=== PATIENT | female | born 1955 | race Two or more races ===

== ENCOUNTER 2016-10-02 13:11 | Observation (INO) | payer SELFPAY ==
[~2016-10-02] VITALS: Ht 149.9 cm; Wt 61.2 kg
[~2016-10-02 13:11] MED LIST: ALBU8.5H6 IH; AZIT1PAC PO; CELE-20 PO; DOXY100T PO; FLUT1DIS5 IH; FLUT9.9S NS; IBUP100O24 PO; IPRA4AER IH; MONT10TA6 PO; OSEL75CA PO; PRED-220 PO; PRED20TA PO; RANI150C PO; SERT25TA PO; SINGU; SPIR25TA PO; predni; singulair
[2016-10-02] MEDS ORDERED: IPRATRPIUM/ALBUTEROL 0.5/2.5MG 3 ML NEBU. NEB ONE (13:30)
[2016-10-02] MEDS ORDERED: methylPREDNISolone SOD SUCC PF 125 MG/2 ML VIAL. IV ONE (13:30)
--- NOTE | 2016-10-02 13:30 | PHYS DOC ---
Past Medical History Past Medical History: CHF, COPD, Diabetes-Type I, Stroke Past Surgical History: Appendectomy, Cholecystectomy, Hysterectomy, Other Additional Past Surgical Histo: BLADDER Alcohol Use: None Drug Use: None Adult General Chief Complaint Chief Complaint: SHORTNESS OF BREATH HPI HPI Patient is a 61 year old Turkmen female who presents with shortness of breath. She states it started around 2 days ago and she's been having a yellow productive cough. She denies any fevers chills. She states she's been having intermittent chest pain that today has become constant she describes as a pressure sensation in her anterior chest. She denies any nausea or diaphoresis. History of heart attacks in the past. She had 2 breathing treatments in route and is feeling better now. She states she hasn't inhaler and a nebulizer at home that she's been using. Review of Systems Review of Systems Constitutional: Denies fever or chills [] Eyes: Denies change in visual acuity, redness, or eye pain [] HENT: Denies nasal congestion or sore throat [] Respiratory: Denies cough or shortness of breath [] Cardiovascular: No additional information not addressed in HPI [] GI: Denies abdominal pain, nausea, vomiting, bloody stools or diarrhea [] : Denies dysuria or hematuria [] Musculoskeletal: Denies back pain or joint pain [] Integument: Denies rash or skin lesions [] Neurologic: Denies headache, focal weakness or sensory changes [] Endocrine: Denies polyuria or polydipsia [] Current Medications Current Medications Current Medications Medications (Trade) Dose Ordered Sig/Zafar Start Time Stop Time Status Last Admin Dose Admin Albuterol/ Ipratropium (Duoneb) 3 ml 1X ONCE 10/02/16 13:30 10/02/16 13:31 DC 10/02/16 14:23 3 ML Aspirin (Ana Paula Aspirin) 325 mg 1X ONCE 10/02/16 15:45 10/02/16 15:46 DC Azithromycin (Zithromax) 500 mg 1X ONCE 10/02/16 15:45 10/02/16 15:46 DC Methylprednisolone Sodium Succinate (SOLU-Medrol 125MG VIAL) 125 mg 1X ONCE 10/02/16 13:30 10/02/16 13:31 DC 10/02/16 14:22 125 MG Ondansetron HCl (Zofran) 4 mg PRN Q8HRS PRN 10/02/16 15:45 10/03/16 15:44 Allergies Allergies Allergies Coded Allergies Type Severity Reaction Last Updated Verified No Known Drug Allergies 06/13/13 No Physical Exam Physical Exam Constitutional: Well developed, well nourished, no acute distress, non-toxic appearance. [] HENT: Normocephalic, atraumatic, bilateral external ears normal, oropharynx moist, no oral exudates, nose normal. [] Eyes: PERRLA, EOMI, conjunctiva normal, no discharge. [] Neck: Normal range of motion, no tenderness, supple, no stridor. [] Cardiovascular:Heart rate regular rhythm, no murmur [] Lungs & Thorax: Bilateral breath sounds clear to auscultation [] Abdomen: Bowel sounds normal, soft, no tenderness, no masses, no pulsatile masses. [] Skin: Warm, dry, no erythema, no rash. [] Back: No tenderness, no CVA tenderness. [] Extremities: No tenderness, no cyanosis, no clubbing, ROM intact, no edema. [] Neurologic: Alert and oriented X 3, normal motor function, normal sensory function, no focal deficits noted. [] Psychologic: Affect normal, judgement normal, mood normal. [] Current Patient Data Vital Signs Vital Signs Date Time Temp Pulse Resp B/P (MAP) Pulse Ox O2 Delivery O2 Flow Rate FiO2 10/02/16 15:00 72 16 112/59 (76) 96 Room Air 10/02/16 13:12 98.3 98.3 Lab Values Laboratory Tests Test 10/02/16 13:15 10/02/16 13:29 Urine Collection Type Unknown Urine Color Yellow Urine Clarity Clear Urine pH 7.0 Urine Specific [place] 1.020 Urine Protein Negative mg/dL (NEG-TRACE) Urine Glucose (UA) Negative mg/dL (NEG) Urine Ketones (Stick) Negative mg/dL (NEG) Urine Blood Negative (NEG) Urine Nitrite Negative (NEG) Urine Bilirubin Negative (NEG) Urine Urobilinogen Dipstick 0.2 mg/dL (0.2 mg/dL) Urine Leukocyte Esterase Negative (NEG) Urine RBC 0 /HPF (0-2) Urine WBC 0 /HPF (0-4) Urine Squamous Epithelial Cells Few /LPF Urine Bacteria 0 /HPF (0-FEW) Urine Mucus Mod /LPF White Blood Count 10.5 x10^3/uL (4.0-11.0) Red Blood Count 3.77 x10^6/uL (3.50-5.40) Hemoglobin 11.1 g/dL (12.0-15.5) L Hematocrit 32.9 % (36.0-47.0) L Mean Corpuscular Volume 87 fL (79-100) Mean Corpuscular Hemoglobin 29 pg (25-35) Mean Corpuscular Hemoglobin Concent 34 g/dL (31-37) Red Cell Distribution Width 13.6 % (11.5-14.5) Platelet Count 342 x10^3/uL (140-400) Neutrophils (%) (Auto) 76 % (31-73) H Lymphocytes (%) (Auto) 16 % (24-48) L Monocytes (%) (Auto) 6 % (0-9) Eosinophils (%) (Auto) 2 % (0-3) Basophils (%) (Auto) 0 % (0-3) Neutrophils # (Auto) 7.9 x10^3uL (1.8-7.7) H Lymphocytes # (Auto) 1.7 x10^3/uL (1.0-4.8) Monocytes # (Auto) 0.6 x10^3/uL (0.0-1.1) Eosinophils # (Auto) 0.2 x10^3/uL (0.0-0.7) Basophils # (Auto) 0.0 x10^3/uL (0.0-0.2) Sodium Level 146 mmol/L (136-145) H Potassium Level 3.5 mmol/L (3.5-5.1) Chloride Level 113 mmol/L (98-107) H Carbon Dioxide Level 21 mmol/L (21-32) Anion Gap 12 (6-14) Blood Urea Nitrogen 24 mg/dL (7-20) H Creatinine 0.9 mg/dL (0.6-1.0) Estimated GFR (Cockcroft-Gault) 64.1 Glucose Level 82 mg/dL (70-99) Calcium Level 8.2 mg/dL (8.5-10.1) L Total Bilirubin 0.2 mg/dL (0.2-1.0) Direct Bilirubin 0.1 mg/dL (0.0-0.2) Aspartate Amino Transferase (AST) 16 U/L (15-37) Alanine Aminotransferase (ALT) 17 U/L (14-59) Alkaline Phosphatase 113 U/L (46-116) Creatine Kinase 87 U/L (26-192) Creatine Kinase MB (Mass) 1.8 ng/mL (0.0-3.6) Creatine Kinase MB Relative Index 2.1 % (0-4) Troponin I Quantitative < 0.017 ng/mL (0.000-0.055) VH-Eos-T-Type Natriuretic Peptide 313 pg/mL (0-124) H Total Protein 7.1 g/dL (6.4-8.2) Albumin 3.5 g/dL (3.4-5.0) Laboratory Tests 10/02/16 13:29 Laboratory Tests 10/02/16 13:29 EKG EKG EKG shows sinus rhythm with rate [address] elevations or T-wave inversions, normal axis, QTC 393 ms, as interpreted by me. Radiology/Procedures Radiology/Procedures [facility] [address] [place] [address] IMAGING REPORT Signed PATIENT: BRE SILVA ACCOUNT: [id number] : 1955 LOCATION: ER AGE: 61 SEX: F EXAM STATUS: REG ER ORD. PHYSICIAN: TANG VALDEZ MD REASON: soa PROCEDURE: CHEST PA & LATERAL 2 views of the Chest 10/02/2016 3:27 PM Indication: Shortness of breath Comparison: Chest radiograph August 03, 2015 Findings: There is no pneumothorax or pleural effusion. No new focal infiltrate is seen. No definitive lucency of the right upper lung is noted, similar to prior exams likely reflecting emphysematous changes. Interstitial coarsening is similar. Heart size is normal. No acute bony changes are appreciated. Surgical changes in the epigastric noted. Impression: 1. Stable radiographic appearance of the chest without evidence of acute cardiopulmonary process. 2. Similar emphysematous changes DICTATED and SIGNED BY: ROSE MARIE HILL MD DATE: 10/02/16 0524 CC: TANG VALDEZ MD; UNKNOWN PCP NAME ~ Impressions: Chest pain COPD exacerbation Course & Med Decision Making Course & Med Decision Making Pertinent Labs and Imaging studies reviewed. (See chart for details) EKG, labs are nonacute. Patient received Solu-Medrol, azithromycin and DuoNeb nebs. Her shortness of breath and chest pressure has improved. She's being admitted to the hospitalist with cardiology consultation. Interim orders have been written. Dragon Disclaimer Dragon Disclaimer This electronic medical record was generated, in whole or in part, using a voice recognition dictation system. Departure Departure Referrals: ASHLIE GOEL MD (PCP) TANG VALDEZ MD Oct 02, 2016 13:30
[2016-10-02 13:44] LABS: BILIRUBIN,URINE NEGATIVE (NEG); GLUCOSE,URINE NEGATIVE (NEG); NITRITE,URINE NEGATIVE (NEG); PROTEIN,URINE NEGATIVE (NEG-TRACE); UROBILINOGEN,URINE 0.2 mg/dL (0.2 mg/dL)
--- NOTE | 2016-10-02 13:47 | RAD ---
2 views of the Chest 10/02/2016 3:27 PM Indication: Shortness of breath Comparison: Chest radiograph August 03, 2015 Findings: There is no pneumothorax or pleural effusion. No new focal infiltrate is seen. No definitive lucency of the right upper lung is noted, similar to prior exams likely reflecting emphysematous changes. Interstitial coarsening is similar. Heart size is normal. No acute bony changes are appreciated. Surgical changes in the epigastric noted. Impression: 1. Stable radiographic appearance of the chest without evidence of acute cardiopulmonary process. 2. Similar emphysematous changes
[2016-10-02 13:49] LABS: BASO % 0 % (0-3); EOS % 2 % (0-3); HEMATOCRIT 32.9 % (36.0-47.0); HEMOGLOBIN 11.1 g/dL (12.0-15.5); LYMPH # 1.7 x10^3/uL (1.0-4.8); LYMPH % 16 % (24-48); MEAN CORPUSCULAR HEMOGLOBIN 29 pg (25-35); MEAN CORPUSCULAR HGB CONC 34 g/dL (31-37); MEAN CORPUSCULAR VOLUME 87 fL (79-100); MONO % 6 % (0-9); NEUT % 76 % (31-73); PLATELET COUNT 342 x10^3/uL (140-400); RED BLOOD COUNT 3.77 x10^6/uL (3.50-5.40); RED CELL DISTRIBUTION WIDTH 13.6 % (11.5-14.5); WHITE BLOOD COUNT 10.5 x10^3/uL (4.0-11.0)
[2016-10-02 13:50] LABS: CALCIUM 8.2 mg/dL (8.5-10.1); CREATININE 0.9 mg/dL (0.6-1.0); GFR 64.1; POTASSIUM 3.5 mmol/L (3.5-5.1)
[2016-10-02 13:55] LABS: BACTERIA,URINE 0 /HPF (0-FEW); RBC,URINE 0 /HPF (0-2); SQUAMOUS EPITHELIAL CELL,UR FEW /LPF; WBC,URINE 0 /HPF (0-4)
[2016-10-02 13:57] LABS: ALBUMIN 3.5 g/dL (3.4-5.0); DIRECT BILIRUBIN 0.1 mg/dL (0.0-0.2); TOTAL BILIRUBIN 0.2 mg/dL (0.2-1.0); TOTAL PROTEIN 7.1 g/dL (6.4-8.2)
[2016-10-02 14:06] LABS: CKMB MASS 1.8 ng/mL (0.0-3.6)
--- NOTE | 2016-10-02 14:15 | EKG ---
[facility] [address] [place] [address] Test Date: 2016-10-02 Test Time: 14:11:49 Pat Name: BRE SILVA Department: Room: Gender: F Applications Tester: : 1955 Requested By: TANG VALDEZ Order Number: [id number] Reading MD: Candy Finney Measurements Intervals [place] Rate: 78 P: 40 WI: 146 QRS: 44 QRSD: 82 T: 34 QT: 342 QTc: 393 Interpretive Statements SINUS RHYTHM NORMAL ECG Electronically Signed On 10-06-2016 15:22:23 CDT by Candy Finney
[2016-10-02] MEDS ORDERED: AZITHROMYCIN 250 MG TABLET. PO ONE (15:45)
[2016-10-02] MEDS ORDERED: ONDANSETRON PF 4 MG/2 ML VIAL. IV PRN ×2 (15:45→16:45)
[2016-10-02] MEDS ORDERED: ASPIRIN 325 MG TABLET PO ONE (15:45)
--- NOTE | 2016-10-02 15:56 | PDOC2 ---
CARDIAC CONSULT DATE OF CONSULT Date of Consult DATE: 10/02/16 TIME: 15:52 REASON FOR CONSULT Reason for Consult: chest pain REFERRING PHYSICIAN Referring Physician: Cynthia SOURCE Source: Chart review, Patient HISTORY OF PRESENT ILLNESS HISTORY OF PRESENT ILLNESS This is a 61 yo female admitted for complains of SOA and chest pain. Reports that her SOA and wheezing started about 3 days ago. She has been coughing and productive with yellow sputum. Denies any fever or chills. Verbalized that she has quit smoking and has not ran out of her COPD inhalers and has been taking them regularly. She does have DM2 per review and told that she has been treating this with diet. Denies any CAD, VTE, recent falls, syncope or any recent injury. She does have GERD which she does not take medications for. She takes ASA and her inhalers and thats all the medications she takes. Her midsternal tightness started this morning and lasted about 2 hours but she also was having coughing spells. This is reproducible with palpation and it is nonradiating. PAST MEDICAL HISTORY Past Medical History PAST MEDICAL HISTORY: CHF, COPD, diabetes, and stroke. PAST SURGICAL HISTORY: Appendectomy, cholecystectomy, and hysterectomy. Pulmonary: COPD Endocrine: Diabetes (22) PAST SURGICAL HISTORY Past Surgical History: Appendectomy, Cholecystectomy, Tubal Ligation FAMILY HISTORY Family History noncontributory SOCIAL HISTORY Smoke: No (quit 6 yrs ago) ALCOHOL: none Drugs: None Lives: with Family CURRENT MEDICATIONS CURRENT MEDICATIONS Current Medications Medications (Trade) Dose Ordered Sig/Zafar Route PRN Reason Start Time Stop Time Status Last Admin Dose Admin Albuterol/ Ipratropium (Duoneb) 3 ml 1X ONCE NEB 10/02/16 13:30 10/02/16 13:31 DC 10/02/16 14:23 Methylprednisolone Sodium Succinate (SOLU-Medrol 125MG VIAL) 125 mg 1X ONCE IV 10/02/16 13:30 10/02/16 13:31 DC 10/02/16 14:22 ALLERGIES ALLERGIES: Coded Allergies: No Known Drug Allergies (Unverified , 06/13/13) ROS Review of System 14 point ROS evaluated with pertinent positives noted per HPI PHYSICAL EXAM General: Alert, Oriented X3, Cooperative, No acute distress HEENT: Atraumatic, Mucous membr. moist/pink Lungs: Clear to auscultation, Normal air movement Heart: Regular rate (SR), Normal S1, Normal S2 Abdomen: Soft, No tenderness Extremities: No cyanosis, No edema Skin: No breakdown, No significant lesion Neuro: Sensation intact Psych/Mental Status: Mental status NL, Mood NL MUSCULOSKELETAL: Osteoarthritic changes both hands VITALS VITALS Vital Signs Date Time Temp Pulse Resp B/P (MAP) Pulse Ox O2 Delivery O2 Flow Rate FiO2 10/02/16 15:00 72 16 112/59 (76) 96 Room Air 10/02/16 13:12 98.3 98.3 LABS Lab: Laboratory Tests Test 10/02/16 13:15 10/02/16 13:29 Urine Collection Type Unknown Urine Color Yellow Urine Clarity Clear Urine pH 7.0 Urine Specific [place] 1.020 Urine Protein Negative mg/dL (NEG-TRACE) Urine Glucose (UA) Negative mg/dL (NEG) Urine Ketones (Stick) Negative mg/dL (NEG) Urine Blood Negative (NEG) Urine Nitrite Negative (NEG) Urine Bilirubin Negative (NEG) Urine Urobilinogen Dipstick 0.2 mg/dL (0.2 mg/dL) Urine Leukocyte Esterase Negative (NEG) Urine RBC 0 /HPF (0-2) Urine WBC 0 /HPF (0-4) Urine Squamous Epithelial Cells Few /LPF Urine Bacteria 0 /HPF (0-FEW) Urine Mucus Mod /LPF White Blood Count 10.5 x10^3/uL (4.0-11.0) Red Blood Count 3.77 x10^6/uL (3.50-5.40) Hemoglobin 11.1 g/dL (12.0-15.5) Hematocrit 32.9 % (36.0-47.0) Mean Corpuscular Volume 87 fL (79-100) Mean Corpuscular Hemoglobin 29 pg (25-35) Mean Corpuscular Hemoglobin Concent 34 g/dL (31-37) Red Cell Distribution Width 13.6 % (11.5-14.5) Platelet Count 342 x10^3/uL (140-400) Neutrophils (%) (Auto) 76 % (31-73) Lymphocytes (%) (Auto) 16 % (24-48) Monocytes (%) (Auto) 6 % (0-9) Eosinophils (%) (Auto) 2 % (0-3) Basophils (%) (Auto) 0 % (0-3) Neutrophils # (Auto) 7.9 x10^3uL (1.8-7.7) Lymphocytes # (Auto) 1.7 x10^3/uL (1.0-4.8) Monocytes # (Auto) 0.6 x10^3/uL (0.0-1.1) Eosinophils # (Auto) 0.2 x10^3/uL (0.0-0.7) Basophils # (Auto) 0.0 x10^3/uL (0.0-0.2) Sodium Level 146 mmol/L (136-145) Potassium Level 3.5 mmol/L (3.5-5.1) Chloride Level 113 mmol/L (98-107) Carbon Dioxide Level 21 mmol/L (21-32) Anion Gap 12 (6-14) Blood Urea Nitrogen 24 mg/dL (7-20) Creatinine 0.9 mg/dL (0.6-1.0) Estimated GFR (Cockcroft-Gault) 64.1 Glucose Level 82 mg/dL (70-99) Calcium Level 8.2 mg/dL (8.5-10.1) Total Bilirubin 0.2 mg/dL (0.2-1.0) Direct Bilirubin 0.1 mg/dL (0.0-0.2) Aspartate Amino Transf (AST/SGOT) 16 U/L (15-37) Alanine Aminotransferase (ALT/SGPT) 17 U/L (14-59) Alkaline Phosphatase 113 U/L (46-116) Creatine Kinase 87 U/L (26-192) Creatine Kinase MB (Mass) 1.8 ng/mL (0.0-3.6) Creatine Kinase MB Relative Index 2.1 % (0-4) Troponin I Quantitative < 0.017 ng/mL (0.000-0.055) SU-Hrt-D-Type Natriuretic Peptide 313 pg/mL (0-124) Total Protein 7.1 g/dL (6.4-8.2) Albumin 3.5 g/dL (3.4-5.0) ASSESSMENT/PLAN ASSESSMENT/PLAN 1. Atypical CP: doubt ACS. suspect bronchospasm/MSK from intractable coughing 2. AECOPD 3. DM2: diet controlled Recommendations 1. Trend troponin. Repeat EKG in AM. If no changes then no further w/u at this time 2. Lipid panel. Problems: ELLIS REECE SOCIAL WORK PROGRAM COORDINATOR Oct 02, 2016 15:56
[2016-10-02 16:00] VITALS: BP 119/60
--- NOTE | 2016-10-02 16:31 | PDOC1 ---
History and Physical Date of Admission Date of Admission 10/02/16 Identification/Chief Complaint Chief Complaint sob Problems: Source Source: Chart review, Patient History of Present Illness History of Present Illness HPI Patient is a 61 year old Irish female who presents with shortness of breath for 3 days. Pt was here in 07/2015 for sob with copd exacerbation. Pt said she started to cough with some yellow sputum 3 days ago, then sob, not exertional, no home o2. She also has some chest pain when she feels sob, pressure like, now 04/02, no N/V, diaphoresis or palpitation. She said had CAD with stents before, CHF, copd, BUT no pulm doc. Admited using some inhaler 4 times a day plus albuterol prn. pt got solumedrol duoneb in ER, now feels better, looks very calm to me. Past Medical History Cardiovascular: CHF Pulmonary: COPD GI: No pertinent hx Endocrine: Diabetes (22) Family History Family History: Hypertension Social History Smoke: No ALCOHOL: none Drugs: None Current Medications Current Medications Current Medications Medications (Trade) Dose Ordered Sig/Zafar Start Time Stop Time Status Last Admin Dose Admin Albuterol/ Ipratropium (Duoneb) 3 ml 1X ONCE 10/02/16 13:30 10/02/16 13:31 DC 10/02/16 14:23 3 ML Aspirin (Ana Paula Aspirin) 325 mg 1X ONCE 10/02/16 15:45 10/02/16 15:46 DC Azithromycin (Zithromax) 500 mg 1X ONCE 10/02/16 15:45 10/02/16 15:46 DC Methylprednisolone Sodium Succinate (SOLU-Medrol 125MG VIAL) 125 mg 1X ONCE 10/02/16 13:30 10/02/16 13:31 DC 10/02/16 14:22 125 MG Ondansetron HCl (Zofran) 4 mg PRN Q8HRS PRN 10/02/16 15:45 10/03/16 15:44 Allergies Allergies Allergies Coded Allergies Type Severity Reaction Last Updated Verified No Known Drug Allergies 06/13/13 No ROS Review of System CONSTITUTIONAL: No fever or chills EYES: No recent changes SKIN: No rash or itching CARDIOVASCULAR: No chest pain, syncope, palpitations, or edema RESPIRATORY: No SOB or cough GASTROINTESTINAL: No nausea, vomiting or abdominal pain NEUROLOGICAL: No headaches or weakness ENDOCRINE: No cold or heat intolerance GENITOURINARY: No urgency or frequency of urination MUSCULOSKELETAL: No back pain or joint pain LYMPHATICS: No enlarged lymph nodes PSYCHIATRIC: No anxiety or depression Physical Exam Physical Exam GEN.: No apparent distress. Alert and oriented. HEENT: Head is normocephalic, atraumatic NECK: Supple. LUNGS: right lower lob mild crackles, no wheezing HEART: RRR, S1, S2 present. Peripheral pulses intact ABDOMEN: Soft, nontender. Positive bowel sounds. EXTREMITIES: Without any cyanosis. bl leg trace edema NEUROLOGIC: Normal speech, normal tone PSYCHIATRIC: Normal affect, normal mood. SKIN: No ulcerations Vitals Vitals Vital Signs Date Time Temp Pulse Resp B/P (MAP) Pulse Ox O2 Delivery O2 Flow Rate FiO2 10/02/16 16:00 68 16 119/60 (79) 99 Room Air 10/02/16 13:12 98.3 98.3 Labs Labs Laboratory Tests Test 10/02/16 13:15 10/02/16 13:29 Urine Collection Type Unknown Urine Color Yellow Urine Clarity Clear Urine pH 7.0 Urine Specific [place] 1.020 Urine Protein Negative mg/dL (NEG-TRACE) Urine Glucose (UA) Negative mg/dL (NEG) Urine Ketones (Stick) Negative mg/dL (NEG) Urine Blood Negative (NEG) Urine Nitrite Negative (NEG) Urine Bilirubin Negative (NEG) Urine Urobilinogen Dipstick 0.2 mg/dL (0.2 mg/dL) Urine Leukocyte Esterase Negative (NEG) Urine RBC 0 /HPF (0-2) Urine WBC 0 /HPF (0-4) Urine Squamous Epithelial Cells Few /LPF Urine Bacteria 0 /HPF (0-FEW) Urine Mucus Mod /LPF White Blood Count 10.5 x10^3/uL (4.0-11.0) Red Blood Count 3.77 x10^6/uL (3.50-5.40) Hemoglobin 11.1 g/dL (12.0-15.5) Hematocrit 32.9 % (36.0-47.0) Mean Corpuscular Volume 87 fL (79-100) Mean Corpuscular Hemoglobin 29 pg (25-35) Mean Corpuscular Hemoglobin Concent 34 g/dL (31-37) Red Cell Distribution Width 13.6 % (11.5-14.5) Platelet Count 342 x10^3/uL (140-400) Neutrophils (%) (Auto) 76 % (31-73) Lymphocytes (%) (Auto) 16 % (24-48) Monocytes (%) (Auto) 6 % (0-9) Eosinophils (%) (Auto) 2 % (0-3) Basophils (%) (Auto) 0 % (0-3) Neutrophils # (Auto) 7.9 x10^3uL (1.8-7.7) Lymphocytes # (Auto) 1.7 x10^3/uL (1.0-4.8) Monocytes # (Auto) 0.6 x10^3/uL (0.0-1.1) Eosinophils # (Auto) 0.2 x10^3/uL (0.0-0.7) Basophils # (Auto) 0.0 x10^3/uL (0.0-0.2) Sodium Level 146 mmol/L (136-145) Potassium Level 3.5 mmol/L (3.5-5.1) Chloride Level 113 mmol/L (98-107) Carbon Dioxide Level 21 mmol/L (21-32) Anion Gap 12 (6-14) Blood Urea Nitrogen 24 mg/dL (7-20) Creatinine 0.9 mg/dL (0.6-1.0) Estimated GFR (Cockcroft-Gault) 64.1 Glucose Level 82 mg/dL (70-99) Calcium Level 8.2 mg/dL (8.5-10.1) Total Bilirubin 0.2 mg/dL (0.2-1.0) Direct Bilirubin 0.1 mg/dL (0.0-0.2) Aspartate Amino Transf (AST/SGOT) 16 U/L (15-37) Alanine Aminotransferase (ALT/SGPT) 17 U/L (14-59) Alkaline Phosphatase 113 U/L (46-116) Creatine Kinase 87 U/L (26-192) Creatine Kinase MB (Mass) 1.8 ng/mL (0.0-3.6) Creatine Kinase MB Relative Index 2.1 % (0-4) Troponin I Quantitative < 0.017 ng/mL (0.000-0.055) KP-Yur-N-Type Natriuretic Peptide 313 pg/mL (0-124) Total Protein 7.1 g/dL (6.4-8.2) Albumin 3.5 g/dL (3.4-5.0) Laboratory Tests Test 10/02/16 13:15 10/02/16 13:29 Urine Collection Type Unknown Urine Color Yellow Urine Clarity Clear Urine pH 7.0 Urine Specific [place] 1.020 Urine Protein Negative mg/dL (NEG-TRACE) Urine Glucose (UA) Negative mg/dL (NEG) Urine Ketones (Stick) Negative mg/dL (NEG) Urine Blood Negative (NEG) Urine Nitrite Negative (NEG) Urine Bilirubin Negative (NEG) Urine Urobilinogen Dipstick 0.2 mg/dL (0.2 mg/dL) Urine Leukocyte Esterase Negative (NEG) Urine RBC 0 /HPF (0-2) Urine WBC 0 /HPF (0-4) Urine Squamous Epithelial Cells Few /LPF Urine Bacteria 0 /HPF (0-FEW) Urine Mucus Mod /LPF White Blood Count 10.5 x10^3/uL (4.0-11.0) Red Blood Count 3.77 x10^6/uL (3.50-5.40) Hemoglobin 11.1 g/dL (12.0-15.5) Hematocrit 32.9 % (36.0-47.0) Mean Corpuscular Volume 87 fL (79-100) Mean Corpuscular Hemoglobin 29 pg (25-35) Mean Corpuscular Hemoglobin Concent 34 g/dL (31-37) Red Cell Distribution Width 13.6 % (11.5-14.5) Platelet Count 342 x10^3/uL (140-400) Neutrophils (%) (Auto) 76 % (31-73) Lymphocytes (%) (Auto) 16 % (24-48) Monocytes (%) (Auto) 6 % (0-9) Eosinophils (%) (Auto) 2 % (0-3) Basophils (%) (Auto) 0 % (0-3) Neutrophils # (Auto) 7.9 x10^3uL (1.8-7.7) Lymphocytes # (Auto) 1.7 x10^3/uL (1.0-4.8) Monocytes # (Auto) 0.6 x10^3/uL (0.0-1.1) Eosinophils # (Auto) 0.2 x10^3/uL (0.0-0.7) Basophils # (Auto) 0.0 x10^3/uL (0.0-0.2) Sodium Level 146 mmol/L (136-145) Potassium Level 3.5 mmol/L (3.5-5.1) Chloride Level 113 mmol/L (98-107) Carbon Dioxide Level 21 mmol/L (21-32) Anion Gap 12 (6-14) Blood Urea Nitrogen 24 mg/dL (7-20) Creatinine 0.9 mg/dL (0.6-1.0) Estimated GFR (Cockcroft-Gault) 64.1 Glucose Level 82 mg/dL (70-99) Calcium Level 8.2 mg/dL (8.5-10.1) Total Bilirubin 0.2 mg/dL (0.2-1.0) Direct Bilirubin 0.1 mg/dL (0.0-0.2) Aspartate Amino Transf (AST/SGOT) 16 U/L (15-37) Alanine Aminotransferase (ALT/SGPT) 17 U/L (14-59) Alkaline Phosphatase 113 U/L (46-116) Creatine Kinase 87 U/L (26-192) Creatine Kinase MB (Mass) 1.8 ng/mL (0.0-3.6) Creatine Kinase MB Relative Index 2.1 % (0-4) Troponin I Quantitative < 0.017 ng/mL (0.000-0.055) ZT-Ffu-D-Type Natriuretic Peptide 313 pg/mL (0-124) Total Protein 7.1 g/dL (6.4-8.2) Albumin 3.5 g/dL (3.4-5.0) VTE Prophylaxis Ordered VTE Prophylaxis Devices: Yes VTE Pharmacological Prophylaxi: Yes Assessment/Plan Assessment/Plan dyspnea, with bronchitis chest pain, atypical, with dyspnea/bronchitis copd h/o CAD, chf? Normacytic anemia depression ckd2 dm2? wo meds plan: card consult add duoneb qid, albuterol prn doxy dvt ppx if glucose high, will add meds ptot pt wants to go home now, but ok to stay overnight after explaination. MANSI MANCINI MD Oct 02, 2016 16:31
[2016-10-02] MEDS ORDERED: ALBUTEROL SULFATE 2.5 MG/3 ML NEBU. NEB PRN (16:45)
[2016-10-02] MEDS ORDERED: hydrALAZINE 20 MG/ML VIAL. IVP PRN (16:45)
[2016-10-02] MEDS ORDERED: traMADol 50 MG TABLET PO PRN (16:45)
[2016-10-02] MEDS ORDERED: MORPHINE SULFATE 2 MG/ML DISP.SYRIN. IV PRN (16:45)
[2016-10-02] MEDS ORDERED: DOCUSATE SODIUM 100 MG CAPSULE. PO PRN (16:45)
[2016-10-02] MEDS ORDERED: ACETAMINOPHEN 325 MG TABLET. PO PRN (16:45)
[2016-10-02] MEDS ORDERED: DOXYCYCLINE HYCLATE 100 MG TABLET PO SCH (17:00)
[2016-10-02] MEDS ORDERED: IPRATRPIUM/ALBUTEROL 0.5/2.5MG 3 ML NEBU. NEB SCH (20:00)
[2016-10-02] MEDS ORDERED: BUDESONIDE 0.5 MG/2 ML NEBU. NEB SCH (20:00)
[2016-10-02] MEDS ORDERED: ENOXAPARIN 40 MG/0.4 ML SYRINGE. SQ SCH (21:00)
[2016-10-03] MEDS ORDERED: SPIRONOLACTONE 25 MG TABLET PO SCH (09:00)
[2016-10-03] MEDS ORDERED: SERTRALINE 25 MG TABLET. PO SCH (09:00)
[2016-10-03] MEDS ORDERED: FAMOTIDINE 20 MG TABLET. PO SCH (09:00)
== END 2016-10-02 20:00 | disposition left against medical advice (07) ==
LOC: ER 13:11 → 6 SOUTH 15:50
PROVIDERS: ADMIT Internal Medicine; ATTEND Internal Medicine
DX: J44.1 Chronic obstructive pulmonary disease with (acute) exacerbation (principal); R07.89 Other chest pain; J40 Bronchitis, not specified as acute or chronic; I25.10 Atherosclerotic heart disease of native coronary artery without angina pectoris; D64.9 Anemia, unspecified; F32.9 Major depressive disorder, single episode, unspecified; E11.22 Type 2 diabetes mellitus with diabetic chronic kidney disease; N18.2 Chronic kidney disease, stage 2 (mild); I50.9 Heart failure, unspecified; K21.9 Gastro-esophageal reflux disease without esophagitis; Z95.5 Presence of coronary angioplasty implant and graft; Z86.73 Personal history of transient ischemic attack (TIA), and cerebral infarction without residual deficits; Z87.891 Personal history of nicotine dependence; Z82.49 Family history of ischemic heart disease and other diseases of the circulatory system
CPT/HCPCS: 36415; 71020; 80048; 80076; 81001; 82553; 83880; 84484; 85027; 93005; 94250; 94640; 96374; 99285; A6539; G0378; J2930; J7620; Q0144; G0379

== ENCOUNTER → 2021-06-27 | Outpatient (CLI) | payer SELFPAY ==
[~2021-06-27] MED LIST changes: +IBUP-1739 PO; -IBUP100O24 PO; +MONT10TA49 PO; -MONT10TA6 PO
--- NOTE | 2021-06-27 16:24 | RAD ---
Digital Mammogram Bilateral History: Routine screening Technique: 2-D digital CC and MLO views were obtained. CAD - computer aided detection was utilize d. Comparison: None. The patient does not recall the year or location of her previous mammogram. Findings: Breast Tissue Density B : There are scattered areas of fibroglandular density There is a 4 mm oval circumscribed mass in the 12:00 position of the right breast approximately 2 cm from the nipple. No other breast mass is seen. There are no malignant appearing calcifications, or ar eas of architectural distortion. Impression: 4 mm mass in the 12:00 position the right breast. If the patient can recall location for previous gadiel mograms comparison is recommended. If none can be located, further evaluation with targeted right asim ast ultrasound is recommended. Assessment: BI-RADS 0. Incomplete. Recommendation: Comparison to previous mammograms. If no previous mammograms, targeted right breast u ltrasound. The patient be notified of results and asked to schedule for additional imaging if needed. The patien t will receive a letter with the results in the mail. Patient information will be entered into the [place] mmography reminder system with a target recall date for the next mammogram. A reminder letter will be generated. Electronically signed by: Juany Ryan MD (06/27/2021 4:22 PM) [id number]
== END ==
LOC: MAMMO 10:06
PROVIDERS: ATTEND Family Medicine
DX: Z12.31 Encounter for screening mammogram for malignant neoplasm of breast (principal)
CPT/HCPCS: 77067

== ENCOUNTER → 2021-08-09 | Outpatient (CLI) | payer MEDICARE, OTHER ==
--- NOTE | 2021-08-09 10:52 | RAD ---
DIAGNOSTIC RIGHT BREAST ULTRASOUND INDICATION: Callback for right breast asymmetry COMPARISON: 06/27/2021 FINDINGS: In the area of concern of the right breast, 12:00 radial 2 cm from the nipple, there is a hypoechoic, circumscribed, parallel orientation 0.5 x 0.2 x 0.3 cm lesion with well-defined back wall and subtle increased through transmission. No abnormal color Doppler flow. IMPRESSION: 1. Hypoechoic circumscribed ovoid lesion in the right breast likely represents a mildly complicated cyst or fibroadenoma. ASSESSMENT: BI-RADS 3: Probably Benign. RECOMMENDATION: 6 month short interval follow-up right breast ultrasound. The facility will notify the patient of the results via mail. Patient information will be entered int o the mammography reminder system with a target recall date for the next mammogram. A reminder letter will be generated by the facility. Electronically signed by: Jose Banda MD (08/09/2021 10:50 AM) [id number]
== END ==
LOC: US 10:19
PROVIDERS: ATTEND Family Medicine
DX: N64.89 Other specified disorders of breast (principal)
CPT/HCPCS: 76641